=== PATIENT | male | born 1990 | race Caucasian/White ===

== ENCOUNTER 2016-10-09 04:43 | Emergency (ER) | payer SELFPAY ==
[2016-10-09] MEDS ORDERED: Fentanyl 100 MCG/2 ML VIAL ONE ×4 (05:08→08:06)
[2016-10-09] MEDS ORDERED: Ondansetron HCl/PF 4 MG/2 ML Vial ONE (05:09)
[2016-10-09] MEDS ORDERED: Pantoprazole 40 MG VIAL ONE (05:09)
[2016-10-09 05:19] LABS: INR-International Normal Ratio 0.9; PTT 24.7 SEC (22.9-36.1)
[2016-10-09 05:20] LABS: Hemoglobin 14.4 g/dL (14.0-18.0); Mean Corpuscular HGB CONC 32.2 g/dL (32.0-36.0); Mean Corpuscular Hemoglobin 29.3 pg (27.0-31.0); Mean Corpuscular Volume 90.9 fl (80.0-94.0); Mean Platelet Volume 6.6 fL (7.4-10.4); Platelet Count 73 thou/uL (130-400); RBC Distribution Width 14.5 % (11.5-14.5); Red Blood Cell (RBC) Count 4.94 mill/uL (4.70-6.10); White Blood Cell (WBC) Count 6.4 thou/uL (4.8-10.8)
[2016-10-09 05:29] LABS: ALT (SGPT) 51 U/L (8-55); AST (SGOT) 111 U/L (5-34); Albumin 4.7 g/dL (3.5-5.0); Alkaline Phosphatase 82 U/L (40-150); Anion Gap 25 mmol/L (10-20); BUN (Urea Nitrogen) 10 mg/dL (8.9-20.6); Bilirubin, Total 0.5 mg/dL (0.2-1.2); CK (CPK) 121 U/L (30-200); Calc. Creatinine Clearance 0 mL/min (70-130); Calcium 8.9 mg/dL (7.8-10.44); Carbon Dioxide 23 mmol/L (22-29); Chloride 98 mmol/L (98-107); Estimated GFR-MDRD Greater than 90; Globulin 3.1 g/dL (2.4-3.5); Glucose 94 mg/dL (70-105); Lipase 264 U/L (8-78); Potassium 3.9 mmol/L (3.5-5.1); Protein, Total 7.8 g/dL (6.0-8.3); Sodium 142 mmol/L (136-145)
[2016-10-09] MEDS ORDERED: Multivit, Adult Inj 10 ML VIAL ONE (05:29)
[2016-10-09] MEDS ORDERED: Thiamine HCl 200 MG/2 ML VIAL ONE (05:29)
[2016-10-09 05:31] LABS: CKMB 0.8 ng/mL (0-6.6); Troponin I Less than 0.010 ng/mL (< 0.028)
[2016-10-09 05:34] LABS: #Basophils 0.1 thou/uL (0.0-0.2); #Eosinphils 0.1 thou/uL (0.0-0.7); #Lymphocytes 2.5 thou/uL (1.20-3.40); #Monocytes 0.6 thou/uL (0.11-0.59); #Neutrophils 3.1 thou/uL (1.40-6.50); %Basophils 1.9 % (0.0-1.0); %Eosinophils 0.8 % (0.0-10.0); %Monocytes 9.2 % (0.0-10.0); %Neutrophils 49.1 % (42.0-75.0); PLT Morphology Comment Appears Decreased; RBC Morphology Normal
[2016-10-09 05:37] LABS: Alcohol 414 mg/dL (Less than 10)
[2016-10-09 05:38] LABS: MDiff Complete? YES; Manual Diff?? NO
[2016-10-09 07:45] LABS: Blood, Urine Small (Negative); Clarity Clear (Clear); Glucose, Urine (Dipstick) Negative (Negative); Leukocyte Negative (Negative); Nitrite Negative (Negative); Protein, Urine (Dipstick) > or equal to 300 mg/dL (Neg-Trace); Specific Gravity, Urine 1.025 (1.005-1.030); Urobilinogen 0.2 mg/dL (0.2-1.0)
[2016-10-09 07:48] LABS: Bilirubin Negative (Negative)
[2016-10-09 07:53] LABS: Bacteria/HPF Rare-Few HPF (None Seen); RBC/HPF 0-3 HPF (0-3); Squamous Epithelial 0-3 HPF (0-3); WBC/HPF 0-3 HPF (0-3)
[2016-10-09 08:53] LABS: Lactic Acid 1.9 mmol/L (0.5-2.2)
--- NOTE | 2016-10-09 23:44 | CT ---
Addendum created by Calos Mills MD on 10/09/2016 7:52 AM Central Time ([place] \T\ [place]) The above was read and discussed at approximately 7:52 AM CDT on10/09/2016 with the attending physici Dr. MARIUSZ freed MATTHEW. Initial Report created on 10/09/2016 7:50 AM Central Time ([place] \[place]\ [place]) EXAM: CT Abdomen and Pelvis With Intravenous Contrast CLINICAL HISTORY: 26 years old, male; Pain; Abdominal pain; Acute; Patient HX: Epigastric and rt. Sided pain, n/v x 6- 7 days TECHNIQUE: Axial computed tomography images of the abdomen and pelvis with intravenous contrast. This CT exam w as performed using one or more of the following dose reduction techniques: automated exposure contro l, adjustment of the mA and/or kV according to patient size, and/or use of iterative reconstruction technique. CONTRAST: 91 mL of ISO 370 administered intravenously. EXAM DATE/TIME: 10/09/2016 7:05 AM COMPARISON: No relevant prior studies available. FINDINGS: Lower thorax: No acute findings. ABDOMEN: Liver: Severe fatty infiltration of the liver. Gallbladder and bile ducts: Unremarkable. Pancreas: Mild inflammatory changes in the anterior pararenal space about the head of the pancreas. Findings concerning for mild pancreatitis. Spleen: normal Adrenals: Unremarkable. No mass. Kidneys and ureters: Unremarkable. No solid mass. No hydronephrosis. Stomach and bowel: Unremarkable. No obstruction. Appendix: -The appendix is normal. PELVIS: Bladder: Distended bladder Reproductive: normal. No mass ABDOMEN and PELVIS: Intraperitoneal space: Unremarkable. No free air. No significant fluid collection. Bones/joints: No acute fracture. No dislocation. Soft tissues: Unremarkable. Vasculature: Unremarkable. No abdominal aortic aneurysm. Lymph nodes: Unremarkable. No enlarged lymph nodes. IMPRESSION: 1. Severe fatty infiltration of the liver. 2. Mild inflammatory changes in the anterior pararenal space about the head of the pancreas. Findings concerning for mild pancreatitis. 3. -The appendix is normal. Thank you for allowing us to participate in the care of your patient. Dictated and Authenticated by: Calos Mills MD 10/09/2016 7:50 AM Central Time ([place] \T\ [place]) FINAL REPORT CT ABDOMEN AND PELVIS WITH CONTRAST 10/09/[address] of the abdomen and pelvis was performed for evaluation of nausea and vomiting and abdomina l pain. Axial slices were acquired after giving oral and IV contrast. Coronal and sagittal reconstru ctions were then done. The lung bases are clear. The liver is enlarged and diffusely low in density consistent with diffuse fatty infiltration. This is rather striking and severe for such a young patient. No stones were sergio reciated in the gallbladder. The kidneys, spleen, adrenal glands, and aorta were unremarkable. The head of the pancreas seems a little prominent in size compared to the remainder of the gland and there is probably a little bit of streaking in the fat around it. Additionally, there is thickening of the wall of the second part of the duodenum. These findings raise the question of mild pancreati tis. No free air or substantial free fluid was seen in the abdomen. The bowel is nondistended with no sign of obstruction. There was no sign of appendicitis or divertic ulitis. There was no particular mesenteric adenopathy. CT of the pelvis showed no pelvic masses, free fluid or inflammatory changes here. The urinary bladd er was quite distended. IMPRESSION: 1. Diffuse fatty infiltration of the liver with hepatic enlargement. Both are unusual for the a ge group. 2. Findings suspicious for mild pancreatitis involving primarily the pancreatic head. 3. Urinary bladder distention which may or may not be of significance. Report in agreement with preliminary reading by Giovani. POS: HOME
== END 2016-10-09 08:43 | disposition short-term general hospital (02) ==
LOC: BURERS 04:43
DX: K85.90 Acute pancreatitis without necrosis or infection, unspecified (principal); F10.129 Alcohol abuse with intoxication, unspecified; D50.9 Iron deficiency anemia, unspecified; F41.9 Anxiety disorder, unspecified; F32.9 Major depressive disorder, single episode, unspecified; F17.210 Nicotine dependence, cigarettes, uncomplicated
CPT/HCPCS: 36415; 74177; 80053; 80307; 81003; 81015; 82274; 82550; 82553; 83605; 83690; 84484; 85025; 85610; 85730; 93005; 94760; 96365; 96366; 96375; 96376; C9113; J2270; J2405; J3010; J3411